=== PATIENT | male | born 1960 | race Caucasian/White ===

== ENCOUNTER 2020-09-01 16:14 | Emergency (ER) | payer MEDICAID ==
[~2020-09-01] VITALS: Ht 182.9 cm; Wt 97.0 kg
[2020-09-01 16:17] VITALS: BP 132/100
[2020-09-01] MEDS ORDERED: TETanus/Pertussis (Acell)/Diphther VAC/PF (Tdap-Adult) 0.5ml syringe IMVAC ONE (16:20)
[2020-09-01] MEDS ORDERED: ceFAZolin 1000mg inj IV ONE (16:20)
[2020-09-01] MEDS ORDERED: gentamicin in saline, iso-osm 80 MG/50 ML premix IV ONE (16:20)
[2020-09-01] MEDS ORDERED: ondansetron/PF 4mg/2ml inj IV ONE (16:20)
[2020-09-01] MEDS ORDERED: fentaNYL/PF 50MCG/1 ML 2ML syringe IV ONE (16:20)
[2020-09-01] MEDS ORDERED: bacitracin 15gm ointment TP ONE (16:20)
[2020-09-01] MEDS ORDERED: LIDOcaine 1% W/epiNEPHrine 1:200,000 10ml vial IJ ONE (16:20)
[2020-09-01] MEDS ORDERED: cefazolin/dext.iso 2gm/100ml 100 ML IV ONE (16:30)
[2020-09-01] MEDS ORDERED: gentamicin inj 80 MG in normal saline 100ml IV soln 100 ML IV ONE (16:30)
[2020-09-01] MEDS ORDERED: LIDOcaine 1% W/epiNEPHrine 1:200,000 10ml vial IJ STA (19:14)
[2020-09-01] MEDS ORDERED: SULF1TAB49 PO (19:44)
[2020-09-01] MEDS ORDERED: CEPH-585 PO (19:44)
[2020-09-01] MEDS ORDERED: ONDA4TAB6 PO (19:44)
[2020-09-01] MEDS ORDERED: HYDR-3972 PO (19:44)
[2020-09-01] MEDS ORDERED: ondansetron 4mg rapidly disintigrating tab PO ONE (19:55)
[2020-09-01] MEDS ORDERED: HYDROcodone/acetaminophen 10/325mg tab PO ONE (19:55)
== END 2020-09-01 20:06 | disposition home or self-care (01) ==
LOC: ER 16:15
DX: S61.012A Laceration without foreign body of left thumb without damage to nail, initial encounter (principal); S61.213A Laceration without foreign body of left middle finger without damage to nail, initial encounter; S61.215A Laceration without foreign body of left ring finger without damage to nail, initial encounter; Z79.2 Long term (current) use of antibiotics; Z79.899 Other long term (current) drug therapy; W45.8XXA Other foreign body or object entering through skin, initial encounter; Y93.89 Activity, other specified; Y92.89 Other specified places as the place of occurrence of the external cause; Y99.8 Other external cause status
CPT/HCPCS: 73130; 73140; 96365; 96367; 96375; 99284; J1580; J2405; J3010; 90715

== ENCOUNTER 2020-09-03 11:35 | Emergency (ER) | payer MEDICAID ==
[~2020-09-03] VITALS: Ht 182.9 cm; Wt 95.0 kg
[~2020-09-03 11:35] MED LIST: CEPH-585 PO; HYDR-3972 PO; ONDA4TAB6 PO; SULF1TAB49 PO
[2020-09-03 11:37] VITALS: BP 129/72
[2020-09-03] MEDS ORDERED: HYDR-3965 PO (13:29)
== END 2020-09-03 13:41 | disposition home or self-care (01) ==
LOC: ER 11:35
DX: S61.201D Unspecified open wound of left index finger without damage to nail, subsequent encounter (principal); Z79.2 Long term (current) use of antibiotics; Z79.899 Other long term (current) drug therapy; X58.XXXD Exposure to other specified factors, subsequent encounter
CPT/HCPCS: 99283